=== PATIENT | male | born 1970 ===

== ENCOUNTER 2022-07-02 08:43 | Observation (INO) | payer OTHER ==
[2022-07-02] MEDS ORDERED: Sodium Chloride 0.9% 10 ML Syringe FLUSH PRN ×2 (08:58→15:09)
[2022-07-02] MEDS ORDERED: HYDROmorphone 1 MG/ML Syringe IVPUSH ONE (09:01)
[2022-07-02 09:40] LABS: ESTIMATED GFR 82 mL/min (>60)
[2022-07-02] MEDS ORDERED: HYDROmorphone 0.5 MG/0.5 ML Syringe IVPUSH ONE (09:47)
[2022-07-02] MEDS ORDERED: Iopamidol 612 MG/ML 100 ML Bottle IVPUSH ONE (09:51)
[2022-07-02] MEDS ORDERED: Iopamidol 612 MG/ML 50 ML SDV IVPUSH ONE (09:51)
[2022-07-02] MEDS ORDERED: Ketorolac 30 MG/ML SDV IVPUSH ONE (14:20)
[2022-07-02] MEDS ORDERED: oxyCODONE 5 MG Tab PO PRN (15:09)
[2022-07-02] MEDS ORDERED: Morphine 2 MG/ML SYRINGE IVPUSH PRN (15:11)
[2022-07-02] MEDS: Acetaminophen 325 MG Tab PO SCH (16:34)
[2022-07-02] MEDS: Enoxaparin 40 MG/0.4 ML Syringe SUBCUT SCH (16:36)
[2022-07-02] MEDS: Ketorolac 30 MG/ML SDV IVPUSH SCH (20:08)
[2022-07-02] MEDS: Mometasone Furoate HFA 200 mcg/Puff 13 GM Inhaler INH SCH (20:27)
[2022-07-02] MEDS ORDERED: VALSARTAN PO SCH (21:00)
[2022-07-02] MEDS ORDERED: atorvaSTATin 20 MG Tab PO SCH (21:00)
[2022-07-02] MEDS ORDERED: Losartan 50 MG Tab PO SCH (21:00)
[2022-07-02] MEDS ORDERED: Cetirizine 10 MG Tab PO SCH (21:00)
[2022-07-02] MEDS ORDERED: AMLODIPINE BESYLATE PO SCH (21:00)
[2022-07-02] MEDS ORDERED: [UNRECOGNIZED DRUG - OTHER] PO SCH (21:00)
[2022-07-02] MEDS ORDERED: Hydrochlorothiazide 12.5 MG Cap PO SCH (21:00)
[2022-07-02] MEDS ORDERED: amLODIPine 10 MG Tab PO SCH (21:00)
[2022-07-02] MEDS ORDERED: Multivitamin Tab PO SCH (21:00)
[2022-07-02] MEDS ORDERED: Fish Oil/Omega-3 Fatty Acids 1 Gm Cap PO SCH (21:00)
[2022-07-03] MEDS: Acetaminophen 325 MG Tab PO SCH ×2 (00:09→08:23)
[2022-07-03] MEDS: Ketorolac 30 MG/ML SDV IVPUSH SCH ×2 (02:05→08:24)
[2022-07-03] MEDS: Enoxaparin 40 MG/0.4 ML Syringe SUBCUT SCH (04:19)
[2022-07-03] MEDS: oxyCODONE 5 MG Tab PO PRN ×2 (06:50→11:30)
[2022-07-03] MEDS: Mometasone Furoate HFA 200 mcg/Puff 13 GM Inhaler INH SCH (08:16)
[2022-07-03] MEDS ORDERED: Potassium Chloride 20 MEQ Tab.ER PO ONE (08:29)
[2022-07-03] MEDS ORDERED: Pantoprazole 40 MG Tab.CR PO SCH (09:00)
== END 2022-07-03 13:10 | disposition home or self-care (01) ==
LOC: JD.ED 08:43 → UNDOADMOB 15:06 → JD.MS 15:06 → JD.ED 15:38
PROVIDERS: ADMIT Surgery; ATTEND Surgery
DX: S22.42XA Multiple fractures of ribs, left side, initial encounter for closed fracture (principal); S22.019A Unspecified fracture of first thoracic vertebra, initial encounter for closed fracture; S22.029A Unspecified fracture of second thoracic vertebra, initial encounter for closed fracture; S12.600A Unspecified displaced fracture of seventh cervical vertebra, initial encounter for closed fracture; S43.102A Unspecified dislocation of left acromioclavicular joint, initial encounter; S27.0XXA Traumatic pneumothorax, initial encounter; J90 Pleural effusion, not elsewhere classified; I10 Essential (primary) hypertension; Z90.49 Acquired absence of other specified parts of digestive tract; J98.11 Atelectasis; V19.9XXA Pedal cyclist (driver) (passenger) injured in unspecified traffic accident, initial encounter
CPT/HCPCS: 36415; 70450; 71045; 71260; 72125; 73030; 74177; 80048; 80053; 83690; 85025; 94640; 94760; 96372; 96374; 96375; 96376; 99285; A9270; G0378; J1170; J1650; J1885; J2270; J3490; Q9967